=== PATIENT | female | born 1985 | race Caucasian/White ===

== ENCOUNTER 2017-04-27 18:43 | Emergency (ER) | payer BC, OTHER ==
[2017-04-27 18:48] VITALS: RESP 16; O2SAT 97
--- NOTE | 2017-04-27 18:52 | EDPHY ---
H & P Time Seen by Provider: 04/27/17 18:49 HPI/ROS: CHIEF COMPLAINT: IUD dislodged HISTORY OF PRESENT ILLNESS: The patient is a 31 y/o female complaining of a dislodged IUD 2 hours ago. Right after sexual intercourse, she developed sharp stabbing RLQ pain. Took a muscle relaxer with minor relief. The symptoms are similar to a prior dislodged IUD. Denies history of ovarian cysts. Denies abnormal vaginal discharge, urinary complaints, fever or other pertinent symptoms. REVIEW OF SYSTEMS: Aside from elements discussed in the HPI, a comprehensive 10-point review of systems was reviewed and is negative. Past Medical/Surgical History: Denies Social History: at bedside, lives in [place] Smoking Status: Never smoked Physical Exam: General Appearance: Alert, pleasant Eyes: Pupils equal and round, no conjunctival pallor or injection ENT, Mouth: Mucous membranes moist Neck: Normal inspection Respiratory: Lungs are clear to auscultation Cardiovascular: Regular rate and rhythm Gastrointestinal: Suprapubic and RLQ tenderness, abdomen is soft Pelvic: Vaginal vault normal, IUD string in cervical os, os appears normal Neurological: A&O, nonfocal Skin: Warm and dry, no rash Extremities: Nontender, no pedal edema Psychiatric: Mood and affect normal Constitutional: Initial Vital Signs Temperature (C) 36.9 C 04/27/17 18:44 Heart Rate 90 04/27/17 18:44 Respiratory Rate 16 04/27/17 18:44 Blood Pressure 103/81 H 04/27/17 18:44 O2 Sat (%) 97 04/27/17 18:44 O2 Delivery Mode Room Air Allergies/Adverse Reactions: codeine Allergy (Verified 04/27/17 18:48) Medical Decision Making - Diagnostics Imaging Results: Imaging Impressions Pelvic/Renal Ultrasound 04/27/17 19:41 Impression: Suspect involuting right ovarian follicle cyst with minimal peritoneal free fluid. Small left uterine myometrial fibroid incidentally noted. Results called to Dr. Chacon at 8:45 PM. Imaging: Discussed imaging studies w/ house calls nurse Radiologist ED Course/Re-evaluation: The patient is a 31 y/o female presenting with a stabbing sensation in her lower abdomen. Requests that I remove the IUD. She is aware that the IUD may not be causing the pain. 190: I removed the IUD with ring tipped forceps. She is no longer having a stabbing sensation but is having abdominal cramps. 600mg PO Motrin administered. 1940: Reassessed patient, she continues to feel better but is still sore, especially when she moves. Pelvic US ordered to r/o ovarian cyst. I have referred her to an outpatient follow up visit with her contour sander regarding alternative forms of contraception. Return precautions provided; patient is comfortable with this plan. Differential Diagnosis: Differential diagnosis includes though it is not limited to ectopic , ovarian cyst, ovarian torsion, PID, UTI, appendicitis. - Data Points Medications Given: Discontinued Medications Ibuprofen (Motrin) 600 mg PO EDNOW ONE Stop: 04/27/17 19:13 Last Admin: 04/27/17 19:31 Dose: 600 mg Departure - Departure Disposition: Home, Routine, Self-Care Clinical Impression: Encounter for removal of intrauterine contraceptive device Ovarian cyst Qualifiers: Laterality: right Qualified Code(s): N83.201 - Unspecified ovarian cyst, right side Condition: Good Instructions: Ovarian Cyst (ED) Additional Instructions: Ibuprofen 600 mg 3 times daily while the pain persists. Follow up with your contour sander or primary care provider in the next week for alternative contraceptive. Return to the emergency department if you experience abnormal vaginal discharge , abdominal pain, fever, numbness or other worsening of your symptoms. Referrals: Milton Arriola MD [Primary Care Provider] - As per Instructions Report Scribed for: Sangeetha Chacon Report Scribed by: Annie Wheat Date of Report: 04/27/17 Time of Report: 18:51 Physician Review and Approval Statement: 04/27/17 18:52 Portions of this note were transcribed by a medical collections representative. I personally performed a history, physical exam, medical decision making, and confirmed accuracy of information the transcribed note.
[2017-04-27] MEDS ORDERED: IBUPROFEN 600 MG TAB PO ONE (19:12)
[2017-04-27 21:01] VITALS: BP 112/63; PULSE 83; TEMP 97.9
== END 2017-04-27 21:01 | disposition home or self-care (01) ==
DX: N83.201 Unspecified ovarian cyst, right side (principal); Z30.432 Encounter for removal of intrauterine contraceptive device; Y82.8 Other medical devices associated with adverse incidents